=== PATIENT | male | born 1980 | race African-American/Black ===

== ENCOUNTER 2023-08-26 23:21 | Emergency (ER) | payer SELFPAY ==
[2023-08-26] MEDS ORDERED: Proparacaine 0.5% Opth 15 ML BOT ONE (23:42)
[2023-08-26] MEDS ORDERED: Fluorescein Opthalmic Strip ONE (23:42)
[2023-08-27] MEDS ORDERED: TETANUS, DIPHTHERIA TOX,ADULT (TDVAX) 0.5 ML VIAL IM ONE (01:05)
[2023-08-27] MEDS ORDERED: Acetaminophen 500 MG TAB ONE (01:05)
[2023-08-27] MEDS ORDERED: Boostrix 0.5 ML (Tdap) VIAL (>/=7 yrs of age) ONE (01:06)
[2023-08-27] MEDS ORDERED: Fluorescein Opthalmic Strip ONE (01:26)
[2023-08-27] MEDS ORDERED: Proparacaine 0.5% Opth 15 ML BOT ONE (01:28)
== END 2023-08-27 02:12 | disposition home or self-care (01) ==
LOC: ERS 23:21
DX: S05.01XA Injury of conjunctiva and corneal abrasion without foreign body, right eye, initial encounter (principal); R03.0 Elevated blood-pressure reading, without diagnosis of hypertension; Z55.6 Problems related to health literacy; Z23 Encounter for immunization; W13.8XXA Fall from, out of or through other building or structure, initial encounter
CPT/HCPCS: 70480; 90471; 90714; 90715